=== PATIENT | female | born 1990 | race Two or more races ===

== ENCOUNTER 2016-03-19 09:50 | Emergency (ER) | payer OTHER ==
[~2016-03-19] VITALS: Ht 167.6 cm; Wt 100.2 kg
[2016-03-19 10:05] VITALS: BP 130/72
[2016-03-19] MEDS ORDERED: SUMAtriptan SUCCINATE 6 MG/0.5 ML VL SC ONE (10:15)
[2016-03-19] MEDS ORDERED: ONDANSETRON HCL 4 MG/2 ML VIAL IM ONE (10:15)
[2016-03-19] MEDS ORDERED: HYDROmorphone HCL 2 MG/ML VL IM ONE (10:15)
== END 2016-03-19 13:44 | disposition home or self-care (01) ==
LOC: ER 09:53
DX: J01.10 Acute frontal sinusitis, unspecified (principal); G43.909 Migraine, unspecified, not intractable, without status migrainosus
CPT/HCPCS: 96372; 99284; J1170; J2405; J3030

== ENCOUNTER 2019-01-08 21:11 | Emergency (ER) | payer OTHER ==
[~2019-01-08] VITALS: Ht 167.6 cm; Wt 99.8 kg
[2019-01-08 22:31] LABS: Urine Bacteria NONE SEEN /hpf (None Seen); Urine Blood Negative /uL (Negative); Urine Mucus FEW (None Seen); Urine Specific Gravity 1.024 (1.001-1.035); Urine WBC <1 /hpf (0 - 5)
[2019-01-08] MEDS ORDERED: ONDANSETRON HCL 4 MG/2 ML VIAL IV ONE (23:45)
[2019-01-08] MEDS ORDERED: HYDROmorphone HCL 2 MG/ML VL IM ONE (23:45)
[2019-01-09] VITALS: BP 158/89
[2019-01-09] MEDS ORDERED: IOHEXOL 300 MG/ML 100ML BOTTLE IJ ONE (00:19)
[2019-01-09 01:08] LABS: Basophils # (auto) 0 uL; Basophils % (auto) 0.3 % (0.0-2.0); Eosinophils # (auto) 0.1 uL; Eosinophils % (auto) 0.9 % (0.0-7.0); Hematocrit 36.2 % (36.0-46.0); Hemoglobin 12.5 g/dL (12.2-16.2); Lymphocytes # (auto) 3.7 uL; Lymphocytes % (auto) 28.5 % (10.0-50.0); Mean Corpuscular Hemoglobin 29.1 pg (28.0-32.0); Mean Corpuscular Hgb Conc. 34.4 g/dL (32.0-36.0); Mean Corpuscular Volume 84.5 fL (80.0-100.0); Monocytes # (auto) 0.7 uL; Monocytes % (auto) 5.5 % (0.0-12.0); Neutrophils # (auto) 8.5 uL; Neutrophils % (auto) 64.8 % (37.0-80.0); Nucleated Red Blood Cells % 0.1 %; Platelet Count (auto) 266 10^3/uL (140-450); Red Blood Cells 4.29 10^6/uL (4.0-5.20); Red Cell Distribution Width 14.4 % (11.8-14.3); White Blood Cell 13.1 10^3/uL (4.4-10.8)
[2019-01-09 01:25] LABS: Potassium 3.9 mmol/L (3.5-5.1)
[2019-01-09 01:28] LABS: Albumin 3.3 g/dL (3.4-5.0); BUN/Creatinine Ratio 23.2
[2019-01-09 01:31] LABS: INR 1.03 (0.9-1.15); Partial Thromboplastin Time 23.9 sec (23.64-32.05)
[2019-01-09 01:39] LABS: Bilirubin, Total 0.2 mg/dL (0.2-1.0); Total Protein 6.6 g/dL (6.4-8.2)
== END 2019-01-09 02:35 | disposition home or self-care (01) ==
LOC: ER 21:17
DX: R10.30 Lower abdominal pain, unspecified (principal); Z90.49 Acquired absence of other specified parts of digestive tract
CPT/HCPCS: 36415; 74177; 80053; 81001; 81025; 82150; 83690; 83735; 85025; 85610; 85730; 96372; 96374; 99284; J1170; J2405; Q9967

== ENCOUNTER 2019-09-05 07:55 | Inpatient (IN) | payer OTHER ==
[~2019-09-05] VITALS: Ht 167.6 cm; Wt 93.3 kg
[2019-09-05 09:34] LABS: Urine Bacteria NONE SEEN /hpf (None Seen); Urine Blood 1+ /uL (Negative); Urine Mucus FEW (None Seen); Urine Specific Gravity 1.021 (1.001-1.035); Urine WBC <1 /hpf (0 - 5)
[2019-09-05] MEDS ORDERED: ONDANSETRON ODT 4 MG TAB PO ONE ×2 (09:45→14:15)
[2019-09-05] MEDS ORDERED: KETOROLAC TROMETH 60MG/2ML VIAL IM ONE (09:45)
[2019-09-05 11:34] LABS: Basophils # (auto) 0 10 ^3/uL (0-0.2); Basophils % (auto) 0.3 % (0.0-2.0); Eosinophils # (auto) 0.1 10 ^3/uL (0-0.8); Eosinophils % (auto) 0.5 % (0.0-7.0); Hematocrit 41.5 % (36.0-46.0); Hemoglobin 13.6 g/dL (12.2-16.2); Lymphocytes # (auto) 2.2 10 ^3/uL (0.4-5.4); Lymphocytes % (auto) 20.4 % (10.0-50.0); Mean Corpuscular Hemoglobin 27.4 pg (28.0-32.0); Mean Corpuscular Hgb Conc. 32.9 g/dL (32.0-36.0); Mean Corpuscular Volume 83.5 fL (80.0-100.0); Monocytes # (auto) 0.8 10 ^3/uL (0-1.3); Monocytes % (auto) 7.2 % (0.0-12.0); Neutrophils # (auto) 7.7 10 ^3/uL (1.6-8.6); Neutrophils % (auto) 71.6 % (37.0-80.0); Platelet Count (auto) 307 10^3/uL (140-450); Red Blood Cells 4.97 10^6/uL (4.0-5.20); Red Cell Distribution Width 14.8 % (11.8-14.3); White Blood Cell 10.8 10^3/uL (4.4-10.8)
[2019-09-05 11:52] LABS: Calcium 9.3 mg/dL (8.5-10.1); Potassium 4.1 mmol/L (3.5-5.1)
[2019-09-05 11:56] LABS: BUN/Creatinine Ratio 28.6; Bilirubin, Total 0.7 mg/dL (0.2-1.0); Total Protein 8.2 g/dL (6.4-8.2)
[2019-09-05] MEDS ORDERED: SODIUM CHLORIDE 0.9% 1,000 ML IV ONE (14:15)
[2019-09-05] MEDS ORDERED: ONDANSETRON HCL 4 MG/2 ML VIAL IV PRN (14:15)
[2019-09-05] MEDS ORDERED: ACETAMINOPHEN 325 MG TAB PO PRN (14:15)
[2019-09-05] MEDS ORDERED: MORPHINE SULF INJ 2 MG/ML SYRINGE 1ML IM ONE (14:15)
[2019-09-05] MEDS ORDERED: PANTOPRAZOLE 40 MG/10 ML VIAL INJ IV ONE (14:30)
[2019-09-05] MEDS ORDERED: CHOL1TAB16 PO (15:57)
[2019-09-05] MEDS ORDERED: ACE3T PO (15:57)
--- NOTE | 2019-09-05 19:00 | NUR ---
Patient Arrived to Unit by ER via Wheelchair Patient is AOx4 and brought to ER via wheelchair with belongings. Patient is sitting up in be w/ no s/s of distress at this time and no SOB. Patient is sitting supine w/ HOB at 30 degrees. Will continue to monitor.
[2019-09-05 20:00] VITALS: BP 127/79
[2019-09-06] VITALS (8 sets, daily range): BP systolic 97–127; BP diastolic 22–79
[2019-09-06] MEDS: MORPHINE SULF INJ 2 MG/ML SYRINGE 1ML IV PRN ×3 (04:34→22:04)
--- NOTE | 2019-09-06 04:42 | NUR ---
Complaints of Pain Pain in upper right abdominal quadrant. Pain medication given as prescribed. Patient said she was slightly dizzy. Educated patient to move slowly and call for assist if needed. Will continue to monitor.
[2019-09-06 05:56] LABS: Basophils # (auto) 0 10 ^3/uL (0-0.2); Basophils % (auto) 0.3 % (0.0-2.0); Eosinophils # (auto) 0.1 10 ^3/uL (0-0.8); Eosinophils % (auto) 0.9 % (0.0-7.0); Hematocrit 40.7 % (36.0-46.0); Hemoglobin 13.7 g/dL (12.2-16.2); Lymphocytes # (auto) 1.7 10 ^3/uL (0.4-5.4); Lymphocytes % (auto) 25.7 % (10.0-50.0); Mean Corpuscular Hemoglobin 27.9 pg (28.0-32.0); Mean Corpuscular Hgb Conc. 33.6 g/dL (32.0-36.0); Monocytes # (auto) 0.4 10 ^3/uL (0-1.3); Monocytes % (auto) 5.4 % (0.0-12.0); Neutrophils # (auto) 4.5 10 ^3/uL (1.6-8.6); Neutrophils % (auto) 67.7 % (37.0-80.0); Nucleated Red Blood Cells % 0.1 %; Platelet Count (auto) 274 10^3/uL (140-450); Red Cell Distribution Width 14.6 % (11.8-14.3); White Blood Cell 6.6 10^3/uL (4.4-10.8)
[2019-09-06 06:07] LABS: Albumin 3.7 g/dL (3.4-5.0); Calcium 8.9 mg/dL (8.5-10.1)
[2019-09-06 06:11] LABS: BUN/Creatinine Ratio 18.6; Bilirubin, Total 1.2 mg/dL (0.2-1.0); Total Protein 7.6 g/dL (6.4-8.2)
--- NOTE | 2019-09-06 07:00 | NUR ---
Endorsed Patient Care to Day Shift RN Patient is AOx4, in bed resting w/ bed locked in lowest position and call light within reach. No s/s of distress, SOB or pain at this time.
[2019-09-06] MEDS: PANTOPRAZOLE 40 MG/10 ML VIAL INJ IV SCH (09:37)
[2019-09-06] MEDS: SODIUM CHLORIDE 0.9% 1,000 ML IV SCH ×2 (13:15→21:04)
--- NOTE | 2019-09-06 13:27 | NUR ---
PATIENT DISCHARGING BACK TO LONG-TERM WITH LONG-TERM TRANSPORT. PATIENT NON-TELEMETRY. ALL IV ACCESS DISCONTINUED. ALL DISCHARGE INSTRUCTIONS GIVEN. ALL DISCHARGE PAPERWORK SIGNED. Addendum: 09/06/19 at 1337 by TAJ TORRE RN WRONG PATIENT
--- NOTE | 2019-09-06 19:35 | NUR ---
Opening Shift Note Patient is AOx4 w/ HOB at 30 degrees. Patient has no signs of distress, some pain noted at this time. Patient has tolerable pain and is able to wait for next dose of pain medication. Safety precautions in place, call light within reach. Will continue to monitor.
--- NOTE | 2019-09-06 20:50 | NUR ---
IV removal on Left Hand IV DC'd with sterile technique, catheter fully intact. Pressure dressing applied to site. Patient tolerated procedure well.
--- NOTE | 2019-09-06 21:00 | NUR ---
IV insertion IV access obtained, via clean sterile technique by inserting 20 gauge catheter at left wrist after 2 attempt(s). IV secured properly. No trauma to site. Patient tolerated procedure well. Addendum: 09/06/19 at 2229 by GABO CULVER RN RN CORRECTION: IV 20 GAUGE PLACED ON RIGHT WRIST NOT LEFT WRIST.
--- NOTE | 2019-09-06 22:00 | NUR ---
PATIENT COMPLAINS OF PAIN PATIENT REQUESTED PAIN MEDICATION FOR RIGHT SIDE ABDOMEN. MEDICATION GIVEN PRESCRIBED. WILL CONTINUE TO MONITOR PAIN LEVEL.
[2019-09-07] MEDS: SODIUM CHLORIDE 0.9% 1,000 ML IV SCH ×2 (04:53→12:09)
[2019-09-07 05:00] VITALS: BP 118/66
--- NOTE | 2019-09-07 07:00 | NUR ---
ENDORSED PATIENT CARE TO MORNING SHIFT RN.
[2019-09-07 08:38] LABS: Cholesterol 143 mg/dL (< 200); Lipase 366 U/L (73-393)
[2019-09-07 08:41] LABS: HDL Cholesterol 39 mg/dL (40-59); LDL Cholesterol 82 mg/dL (< 100); Triglycerides 158 mg/dL (< 150)
[2019-09-07 08:46] VITALS: BP 125/71
[2019-09-07] MEDS: PANTOPRAZOLE 40 MG/10 ML VIAL INJ IV SCH (10:00)
[2019-09-07 17:00] VITALS: BP 117/71
--- NOTE | 2019-09-07 18:25 | NUR ---
PATIENT DISCHARGED HOME INDEPENDENTLY. PATIENT NON-TELEMETRY. ALL IV ACCESS DISCONTINUED. ALL DISCHARGE INSTRUCTIONS GIVEN. ALL DISCHARGE PAPERWORK SIGNED.
== END 2019-09-07 18:25 | disposition home or self-care (01) | DRG 440 ==
LOC: ER 07:55 → OVERFLOW 07:56 → WEST WING 19:02
PROVIDERS: ADMIT Nurse Practitioner Family; ATTEND Family Medicine
DX: K85.90 Acute pancreatitis without necrosis or infection, unspecified (principal); K76.0 Fatty (change of) liver, not elsewhere classified; K29.70 Gastritis, unspecified, without bleeding; E86.0 Dehydration; K70.9 Alcoholic liver disease, unspecified; Z90.49 Acquired absence of other specified parts of digestive tract; Z79.899 Other long term (current) drug therapy; Z83.3 Family history of diabetes mellitus; Z82.49 Family history of ischemic heart disease and other diseases of the circulatory system; Z82.3 Family history of stroke
CPT/HCPCS: 36415; 74176; 76705; 80053; 80061; 80320; 81001; 81025; 82150; 83690; 84702; 85025; 96372; 96374; C9113; G0378; J1885; Q0162

== ENCOUNTER → 2019-11-02 | Day surgery (SDC) | payer OTHER ==
[2019-10-27 12:50] LABS: Eosinophils # (auto) 0.1 10 ^3/uL (0-0.8); Monocytes # (auto) 0.6 10 ^3/uL (0-1.3); White Blood Cell 12.3 10^3/uL (4.4-10.8)
[2019-10-27 12:52] LABS: Basophils # (auto) 0.1 10 ^3/uL (0-0.2); Basophils % (auto) 0.4 % (0.0-2.0); Eosinophils % (auto) 0.6 % (0.0-7.0); Hematocrit 39.4 % (36.0-46.0); Lymphocytes # (auto) 3.4 10 ^3/uL (0.4-5.4); Lymphocytes % (auto) 27.9 % (10.0-50.0); Mean Corpuscular Hemoglobin 27.2 pg (28.0-32.0); Mean Corpuscular Volume 82.3 fL (80.0-100.0); Monocytes % (auto) 4.7 % (0.0-12.0); Neutrophils # (auto) 8.1 10 ^3/uL (1.6-8.6); Neutrophils % (auto) 66.4 % (37.0-80.0); Nucleated Red Blood Cells % 0.1 %; Platelet Count (auto) 325 10^3/uL (140-450); Red Blood Cells 4.79 10^6/uL (4.0-5.20); Red Cell Distribution Width 13.9 % (11.8-14.3)
[2019-10-27 13:05] LABS: INR 1.01 (0.9-1.15); Partial Thromboplastin Time 26.1 sec (23.0-31.2)
[~2019-11-02] VITALS: Ht 167.6 cm; Wt 90.7 kg
[~2019-11-02] MED LIST: FLUMAZENIL 0.1 MG/ML INJ 10ML MDV IV ONE; LIDOCAINE VISCOUS 2% 15ML UD ONE; NALOXONE HCL 0.4 MG/ML VIAL ONE; SODIUM CHLORIDE LOCK 10 ML ONE; diphenhdrAMINE HCL 50 MG/1 ML VL ONE
[2019-11-02] MEDS: fentaNYL CITRATE 100 MCG/2 ML VL ONE ×3 (13:29→13:34)
[2019-11-02] MEDS: MIDAZOLAM HCL 5 MG/ML-1ML VIAL ONE ×3 (13:29→13:34)
[2019-11-02 14:10] VITALS: BP 109/67
== END | disposition home or self-care (01) ==
LOC: GI 12:12
PROVIDERS: ATTEND Internal Medicine Gastroenterology
DX: R10.13 Epigastric pain (principal); K29.50 Unspecified chronic gastritis without bleeding; K31.9 Disease of stomach and duodenum, unspecified; K44.9 Diaphragmatic hernia without obstruction or gangrene; F32.9 Major depressive disorder, single episode, unspecified; F41.9 Anxiety disorder, unspecified; E66.9 Obesity, unspecified; Z68.32 Body mass index [BMI] 32.0-32.9, adult; Z88.1 Allergy status to other antibiotic agents; Z79.899 Other long term (current) drug therapy; Z20.828 Contact with and (suspected) exposure to other viral communicable diseases
CPT/HCPCS: 36415; 43239; 84702; 85025; 85610; 85730; J2250; J3010; J7030; U0003

== ENCOUNTER → 2020-02-07 | Outpatient (CLI) | payer OTHER ==
[2020-02-07 11:55] LABS: Basophils # (auto) 0 10 ^3/uL (0-0.2); Basophils % (auto) 0.4 % (0.0-2.0); Eosinophils # (auto) 0.1 10 ^3/uL (0-0.8); Hemoglobin 12.7 g/dL (12.2-16.2); Lymphocytes # (auto) 2.5 10 ^3/uL (0.4-5.4); Lymphocytes % (auto) 27.6 % (10.0-50.0); Mean Corpuscular Hemoglobin 27.9 pg (28.0-32.0); Mean Corpuscular Hgb Conc. 34.2 g/dL (32.0-36.0); Mean Corpuscular Volume 81.6 fL (80.0-100.0); Monocytes # (auto) 0.4 10 ^3/uL (0-1.3); Monocytes % (auto) 4.8 % (0.0-12.0); Neutrophils % (auto) 66.2 % (37.0-80.0); Nucleated Red Blood Cells % 0.1 %; Platelet Count (auto) 297 10^3/uL (140-450); Red Blood Cells 4.54 10^6/uL (4.0-5.20); Red Cell Distribution Width 14.5 % (11.8-14.3); White Blood Cell 9.1 10^3/uL (4.4-10.8)
[2020-02-07 12:20] LABS: Urine Bacteria NONE SEEN /hpf (None Seen); Urine Blood 3+ /uL (Negative); Urine Mucus FEW (None Seen); Urine Specific Gravity 1.033 (1.001-1.035); Urine WBC 2 /hpf (0 - 5)
[2020-02-07 13:19] LABS: Potassium 4.1 mmol/L (3.5-5.1)
[2020-02-07 13:27] LABS: Albumin 3.7 g/dL (3.4-5.0); BUN/Creatinine Ratio 25.8; Bilirubin, Total 0.2 mg/dL (0.2-1.0); Calcium 8.7 mg/dL (8.5-10.1); Total Protein 7.8 g/dL (6.4-8.2)
== END | disposition home or self-care (01) ==
LOC: LAB 11:26
PROVIDERS: ATTEND Internal Medicine Gastroenterology
DX: K29.00 Acute gastritis without bleeding (principal); R10.13 Epigastric pain
CPT/HCPCS: 36415; 80053; 81001; 82150; 83690; 85025; 86038; 86704; 86706; 86708; 86803; 87340